=== PATIENT | female | born 1975 | race Caucasian/White ===

== ENCOUNTER → 2021-09-13 | Outpatient (REF) | payer OTHER | LOC: M SFHCDERM 14:53 | PROVIDERS: ATTEND Nurse Practitioner Family | DX: B35.1 Tinea unguium (principal) ==

== ENCOUNTER 2025-02-10 11:43 | Emergency (ER) | payer OTHER ==
[~2025-02-10] VITALS: Ht 170.2 cm; Wt 81.6 kg
[2025-02-10] MEDS: ONDANSETRON 4MG 2ML VIAL IV ONE (12:54)
[2025-02-10] MEDS: PANTOPRAZOLE 40MG VIAL IV ONE (12:54)
[2025-02-10] MEDS: SUCRALFATE SUSP 1GM/10ML UD PO ONE (12:59)
[2025-02-10] MEDS: NS (Normal Saline) 0.9% 1,000 ML IV ONE (12:59)
[2025-02-10 13:04] LABS: BASO # 0.0 10^3/uL (0.0-0.2); BASO % 0.7 % (0.0-1.0); EOS # 0.2 10^3/uL (0.0-0.5); EOS % 3.0 % (0.0-3.0); LYMPH # 1.4 10^3/uL (1.5-5.0); LYMPH % 25.0 % (24.0-44.0); MONO # 0.3 10^3/uL (0.0-0.8); MONO % 4.7 % (2.0-8.0); NEUTROPHILS # 3.8 10^3/uL (1.5-8.5); NEUTROPHILS % 66.4 % (36.0-66.0); PLATELET COUNT, AUTOMATED 291 10^3/uL (150-450)
[2025-02-10 13:31] LABS: ALT/SGPT 11.0 U/L (7.0-40); AST/SGOT 17.0 U/L (<34)
[2025-02-10] MEDS ORDERED: ISOVUE-370 76% 100 ML VIAL As Ordered ONE (14:30)
[2025-02-10] MEDS ORDERED: OMEP40CA4 PO (15:58)
[2025-02-10] MEDS ORDERED: SUCR1TA PO (15:58)
[2025-02-10] MEDS ORDERED: ONDA-282 PO (16:00)
[2025-02-10 16:06] VITALS: BP 112/71; TEMP 96.9; O2SAT 100
== END 2025-02-10 16:07 | disposition home or self-care (01) ==
LOC: M ED 11:43
DX: K29.70 Gastritis, unspecified, without bleeding (principal); K21.9 Gastro-esophageal reflux disease without esophagitis
CPT/HCPCS: 74177; 80047; 80076; 83690; 85025; 93005; 96374; 96375; 99284; J2405; J2470; Q9967